=== PATIENT | female | born 1950 | race Caucasian/White ===

== ENCOUNTER → 2018-03-11 | Outpatient (CLI) | payer OTHER | LOC: RAD 12:35 | DX: R05 Cough (principal); L74.513 Primary focal hyperhidrosis, soles ==

== ENCOUNTER → 2018-05-02 | Outpatient (CLI) | payer OTHER | LOC: CAT 07:52 | DX: R63.4 Abnormal weight loss (principal); R61 Generalized hyperhidrosis; M25.78 Osteophyte, vertebrae; M47.817 Spondylosis without myelopathy or radiculopathy, lumbosacral region; M47.814 Spondylosis without myelopathy or radiculopathy, thoracic region ==

== ENCOUNTER → 2019-03-13 | Outpatient (CLI) | payer OTHER ==
[2019-03-13 11:55] LABS: CREATININE 1.1 mg/dL (0.6-1.0)
== END ==
LOC: CAT 10:22
PROVIDERS: Family Medicine
DX: R51 Headache (principal); I10 Essential (primary) hypertension; Z82.49 Family history of ischemic heart disease and other diseases of the circulatory system